=== PATIENT | female | born 1935 | race Caucasian/White ===

== ENCOUNTER 2019-04-29 23:47 | Observation (INO) ==
[2019-04-30] MEDS ORDERED: ZOFRAN IV ONE (00:17)
[2019-04-30 01:33] LABS: ALB/GLOB RATIO 1.7; ALBUMIN 4.4 g/dL (3.5-5.0); CALCIUM 10.1 mg/dL (8.8-10.2); CREATININE 1.2 mg/dL (0.5-0.9); POTASSIUM 4.3 mmol/L (3.5-5.1); TOTAL BILIRUBIN 0.64 mg/dL (0.20-1.00)
--- NOTE | 2019-04-30 01:43 | EKG Report ---
Test Performed on : 04/30/2019 00:51:10 AM Test Reason : cp Blood Pressure : / mmHG Vent. Rate : 088 BPM Atrial Rate : 088 BPM P-R Int : 154 ms QRS Dur : 086 ms QT Int : 366 ms P-R-T Axes : 077 032 126 degrees QTc Int : 442 ms Sinus rhythm. with premature atrial complexes. Left ventricular hypertrophy with repolarization abnormality Abnormal ECG No previous ECGs available Confirmed by Ramin SKELTON, Jhony Sutherland ([id number]) on 04/30/2019 7:19:56 AM
[2019-04-30 01:54] LABS: EOS# 0.04 X1000 (0.0-0.7); EOS% 0.3 % (0.0-10.0); HEMATOCRIT 46.3 % (37.0-47.0); HEMOGLOBIN 15.4 g/dL (12.0-16.0); IMM GRAN# 0.03 X1000 (0.0-0.04); IMM GRAN% 0.2 % (0.0-0.5); LYMPH# 0.55 X1000 (1.2-3.4); LYMPH% 4.3 % (20.5-51.1); MCH 31.5 PG (27-31); MCHC 33.3 g/dL (33-37); MCV 94.7 FL (81-99); MONO# 0.82 X1000 (0.11-0.59); MONO% 6.4 % (1.7-9.3); MPV 11.1 FL (7.4-10.4); NEUT# 11.32 X1000 (1.4-6.5); NEUT% 88.8 % (42.2-75.2); PLT 225 X1000 (130-400); RBC 4.89 XMIL (4.2-5.4); RDW 13.2 % (11.5-14.5); WBC 12.76 X1000 (4.8-10.8)
--- NOTE | 2019-04-30 05:21 | PROVIDER DOCUMENTATION ---
This chart was entered by Laura Christie Scribe, acting as scribe for Shayna Aiken MD. HPI-Abdominal Pain/GI Problem - General Chief Complaint: N/V/D Stated Complaint: CHEST PAIN/ABD PAIN Time Seen by Provider: 04/30/19 00:16 Source: patient Allergies/Adverse Reactions: Patient Allergies Allergy/AdvReac Type Severity Reaction Status Date / Time No Known Allergies Allergy Verified 03/24/16 15:19 Home Medications: Home Medication List Medication Instructions Recorded Confirmed Last Taken Type Amlodipine Besylate [Norvasc] 5 mg PO DAILY 03/24/16 04/30/19 04/29/19 History Pravastatin Sodium 40 mg PO DAILY 03/24/16 04/30/19 04/29/19 History Triamterene/Hctz [Dyazide] 1 each PO DAILY 03/24/16 04/30/19 04/29/19 History [place]-3 Fatty Acids [Fish Oil] 1 tab PO HS 03/25/16 04/30/19 04/29/19 History - History of Present Illness-ABD Nature of Presenting Problems: pt is a 83 yr old female presenting with complaint of nausea, vomiting, diarrhea and abdominal pain. pt reports onset approx 2100, no fever, admits chills and fatigue. pt reports similar complaints. They state she has had so many episodes of vomiting and diarrhea they are unable to count. Deny any blood in vomit or diarrhea. States vomit is just yellow and diarrhea is just watery. Abdominal Pain Onset Location: reports: generalized abdomen Pain Radiation: reports: no radiation Quality of Pain: reports: aching Severity in ED: reports: moderate Onset/Duration: reports: this evening (2100) Timing: reports: still present Activities at Onset: reports: rest Exposure to sick contacts?: Yes ( reports similar complaint) Modifying Factors: improves with: nothing Associated Symptoms: reports: diarrhea, fever/chills (chills, no fever), malaise , nausea, vomiting. denies: arm pain, back/neck pain Last BM: this evening Dark Stools Present?: reports: none noticed Rectal Bleeding: reports: none Emesis Description: reports: clear Bruising or Bleeding Gums?: No Similar Symptoms Previously?: No Recently seen or treated by another doctor?: No Review of Systems - Adult - REVIEW OF SYSTEMS - ADULT Constitutional: reports: chills, fatique. denies: fever Eyes: reports: no symptoms reported Ears, Nose, Mouth & Throat: reports: no symptoms reported Cardiovascular: denies: chest pain, palpitations, syncope Respiratory: denies: shortness of breath Gastrointestinal: reports: abdominal pain, diarrhea, nausea, vomiting Genitourinary: denies: dysuria, frequency, flank pain Musculoskeletal: reports: no symptoms reported Integumentary: reports: no symptoms reported Neurological: denies: dizziness/vertigo, headache/migraines Psychiatric: reports: no symptoms reported Endocrine: reports: no symptoms reported Hematologic/Lymphatic: reports: no symptoms reported Allergic/Immunologic: reports: no symptoms reported All Other Systems: Reviewed and Negative Past History - Adult - PAST MEDICAL HISTORY-ADULT Review of Records: reports: Old Records Reviewed, Nursing Assessment Review, Medications Reviewed, Social history reviewed & non-contributory. Major Childhood Illnesses: reports: denies history Cardiovascular: reports: denies history Respiratory: reports: denies history Gastrointestinal: reports: denies history Obstetrical/Gynecological: reports: denies history Genitourinary: reports: denies history Musculoskeletal: reports: denies history Neurological: reports: denies history Endocrine/Immune: reports: denies history Other Conditions: reports: denies history - IMMUNIZATION STATUS Childhood Immunizations: See Nurse Assessment Flu Vaccine: See Nurse Assessment - FAMILY HISTORY Family History: reviewed, not pertinent - SOCIAL HISTORY Living Situation: family Physical Exam-General - PHYSICAL EXAM-ADULT Initial Vital Signs Reviewed: Yes - CONSTITUTIONAL General Appearance: appears well, alert, mild distress (uncomfortable appearing, appears weak) - EYES Eyes: PERRL/EOMI - HEAD, EARS, NOSE, MOUTH & THROAT HENMT: normocephalic/atraumatic, moist mucous membranes - NECK Neck: non-tender, full range of motion, supple, normal inspection - RESPIRATORY Respiratory: chest non-tender, lungs clear, normal breath sounds - CARDIOVASCULAR Cardiovascular: normal peripheral pulses, regular rate, rhythm, no edema - GASTROINTESTINAL (ABDOMEN) Abdominal Exam: normal bowel sounds, soft, tenderness (generalized) - LYMPHATIC Lymphatic: no adenopathy - MUSCULOSKELETAL Back Exam: normal inspection, no CVA tenderness, no vertebral tenderness Extremity: normal range of motion, non-tender, normal inspection - SKIN Integumentary: normal color, normal turgor, warm/dry - NEUROLOGIC Neurologic: grossly normal - PSYCHIATRIC Psych/Mental Status: normal mood/affect, oriented x 3 Progress - PLAN OF CARE/RESULTS Progress/Plan/Lab Results: Vital Signs - 8 hr 04/29/19 23:59 Temperature 97.9 F Pulse Rate 69 Respiratory Rate 20 Blood Pressure 130/90 O2 Sat by Pulse Oximetry 100 Orders Category Date Time Status CHEST-PORTABLE [RAD] Stat Exams 04/30/19 00:[address] ABD/PELVIS W/IV CONT ONLY [CT] Stat Exams 04/30/19 01:14 Ordered CBC WITH ELECTRONIC DIFF [HEME] Stat Lab 04/30/19 00:46 Results COMPREHENSIVE METABOLIC PANEL [CHEM] Stat Lab 04/30/19 00:46 Received LIPASE [CHEM] Stat Lab 04/30/19 00:46 Received TROPONIN T Stat Lab 04/30/19 00:46 Received URINALYSIS W/POSS RFLX CULT [URINALYSIS] Stat Lab 04/30/19 00:17 Uncollected Ondansetron [Zofran] Med 04/30/19 00:17 Discontinued 4 mg IV NOW ONE EKG [EKG] Stat Ther 04/29/19 23:[address] scan showing possible ileus. SLightly increased WBC to 13. Cr elevated to 1.2 which is elevated from her baseline. Lipase also mildly elevated. Spoke to Dr Martin stone decorator for hospitalist who accepted patient for OBS admission given CT findings and GAGANDEEP. Further orders to be placed by their team. Stable for floor. Result Diagrams: 04/30/19 00:46 04/30/19 00:46 - EKG 1 Time of EKG reading by physician:: 01:55 EKG Read and Signed by:: Shayna Aiken EKG Interpretation (*Must complete 3 of following elements*): Abnormal Rate: 88 Rhythm: NSR [place]: normal QRS: LVH, other (PAC) Prior EKG Comparison: unchanged from prior - CT/MRI 1 CT Study: Abdomen (Nonspecific increased bowel fluid. THis could be ileus) - CONSULTS/PCP/HOSPITALIST Notification #1 *Consult/PCP/Hospitalist*: Dr Martin Time Discussed: 05:16 Consult Disposition: Admit Departure - Departure Date of Disposition Decision: 04/30/19 Time of Disposition Decision: 05:16 DIAGNOSIS: Ileus, Nausea & vomiting, GAGANDEEP (acute kidney injury) Disposition: ADMITTED INPATIENT 09 Certified Medical Emergency: Emergent Condition: Stable Referrals and Follow-Ups: Jhony Faustin MD [Primary Care Provider] - - Critical Care Note This patient required my direct & personal management of CC.: No Attestation - Physician/ NORI Attestation Patient care was provided by Advanced Practice Provider:: No The physician spent face to face time with patient:: Yes Advanced Practice Provider documentation review:: Supervising physician onsite and consulted in the evaluation and care of this patient. The physician did have a face to face encounter with the patient. This chart was documented by the indicated scribe, (Laura Christie Scribe) and accurately reflects the services I performed and decisions made by me, Shayna Aiken MD, as attested by the provider's signature.
--- NOTE | 2019-04-30 06:33 | HISTORY AND PHYSICAL ---
PRIMARY CARE PHYSICIAN: Dr. Faustin. CHIEF COMPLAINT: Nausea, vomiting and diarrhea x1 day. HISTORY OF PRESENTING ILLNESS: An 83-year-old female with a history of hypertension and hyperlipidemia, who had presented to the emergency department with a 1-day history of having nausea, vomiting and diarrhea. The patient states that she was having several bouts of not feeling well. She states that her was also sick with similar symptoms. The patient states that she recently tried a new chicken meal. She was evaluated in the emergency department. She had imaging done which did show possibility of ileus due to her presenting symptoms, and it was thought that we will place her for observation for further evaluation and management. At the time of my examination, patient denied any headache, fever, chills, chest pain, shortness of breath, hemoptysis, melena or weight changes, but complained of diarrhea and not feeling well. PAST MEDICAL HISTORY: Includes hypertension and hyperlipidemia. PAST SURGICAL HISTORY: Hysterectomy and cataract surgery. ALLERGIES: No known drug allergies. CURRENT MEDICATIONS: 1. Amlodipine 5 mg p.o. daily. 2. Pravastatin 40 mg p.o. daily. 3. Dyazide 1 tablet daily. SOCIAL HISTORY: No history of smoking, alcohol or illicit drug use. FAMILY HISTORY: Positive for coronary artery disease in father. REVIEW OF SYSTEMS: Fourteen point review of system as listed in HPI. Other systems negative. PHYSICAL EXAMINATION: GENERAL: Cooperative friendly female. She is resting more comfortably now. VITAL SIGNS: Temperature 97.9 degrees, pulse 69, respirations 20, and blood pressure 130/90. HEENT: Atraumatic, normocephalic. Extraocular movements intact. PERRLA. NECK: Supple. CHEST: Clear to auscultation. CARDIOVASCULAR: Regular rate and rhythm. ABDOMEN: Soft. Positive bowel sounds. EXTREMITIES: No edema. NEUROLOGIC: She is awake, alert, and oriented x3. : No bladder distention. SKIN: Warm. LABORATORIES AND STUDIES: WBC 12.76, hemoglobin 15.4, hematocrit 46.3, and platelets 225,000. Sodium 140, potassium 4.3, chloride 98, CO2 28, BUN is 32, creatinine is 1.2, and glucose is 191. CT of the abdomen shows ileus. ASSESSMENT: This 83-year-old elderly female with a history of hypertension and hyperlipidemia, presented to the emergency department with a 1-day history of having nausea, vomiting and diarrhea. She was evaluated in the emergency department. She had imaging done which did show the possibility of ileus. Subsequently, we will place her for observation and for further evaluation and management. ASSESSMENT: 1. Nausea, vomiting, and diarrhea with abdominal pain. 2. Suspected ileus. 3. Hypertension. PLAN: 1. We will admit patient to medical floor with telemetry. 2. Continue with supportive treatment with IV fluids, antiemetics, and pain control. 3. We will monitor blood pressure closely. 4. Resume antihypertensive agent. 5. We will put patient on DVT prophylaxis with SCD's. 6. We will continue to follow and reassess. Make further recommendations based on patient's clinical course. cc: Bryce Martin MD MTDD
--- NOTE | 2019-04-30 06:47 | Diag Imaging Result Doc PS360 ---
CT ABD/PELVIS W/IV CONT ONLY - 04/30/2019 INDICATION: n/v/d COMPARISON: 09/10/2013 FINDINGS: Stable multifocal linear atelectasis in the lung bases. Stable small calcified granuloma in the left lower lobe. No infiltrates. There are several bilateral small renal cysts. Otherwise all abdominal organs are normal. No bowel obstruction or inflammation. No constipation. Very little formed stool. Uterus is absent. Urinary bladder and rectum are normal. There are moderate degenerative changes of the spine. No acute or suspicious bony lesion. IMPRESSION: No acute process. This exam was performed using automated exposure control, adjustment of mA or kV according to patient size, and/or use of iterative reconstruction technique Electronically signed by Teddy Sepulveda 04/30/2019 6:45 AM
[2019-04-30 07:36] LABS: URINE SOURCE CLEAN CATCH
[2019-04-30 07:38] LABS: BILIRUBIN URINE NEGATIVE (NEGATIVE); BLOOD URINE NEGATIVE (NEGATIVE); COLOR YELLOW; GLUCOSE URINE NEGATIVE (NEGATIVE); KETONE URINE NEGATIVE (NEGATIVE); LEUKOCYTES URINE TRACE (NEGATIVE); NITRITE URINE NEGATIVE (NEGATIVE); PROTEIN URINE TRACE mg/dL (NEGATIVE); TURBIDITY URINE CLEAR (CLEAR); UROBILINOGEN URINE NORMAL (NORMAL)
[2019-04-30 07:39] LABS: UR EPITHELIAL CELLS <10 /HPF (<10); URINE BACTERIA NEGATIVE /HPF; URINE RBC <10 /HPF (<10)
[2019-04-30] MEDS ORDERED: NS 1,000 ML IV SCH (07:48)
[2019-04-30] MEDS ORDERED: ZOFRAN IV PRN (07:48)
[2019-04-30 07:50] LABS: SP GRAVITY URINE < 1.005
--- NOTE | 2019-04-30 07:53 | Diag Imaging Result Doc PS360 ---
EXAM: CHEST-PORTABLE INDICATION: chest pain TECHNIQUE: One view COMPARISON: None. FINDINGS: There is mild bibasilar subsegmental atelectasis. There is a small calcified granuloma at the left lung base. The lungs are grossly clear, otherwise. There is no discrete pleural fluid collection or pneumothorax. The cardiomediastinal silhouette and central vasculature are grossly unremarkable. IMPRESSION: Mild bibasilar atelectasis. Electronically signed by Guy Marcos 04/30/2019 7:51 AM
[2019-04-30] MEDS ORDERED: NORVASC PO SCH (09:00)
[2019-04-30] MEDS ORDERED: PRAVACHOL PO SCH (09:00)
[2019-04-30] MEDS ORDERED: DYAZIDE PO SCH (09:00)
[2019-04-30 15:27] VITALS: BP 132/47
== END 2019-04-30 16:27 | disposition home or self-care (01) ==
LOC: 3N 23:47 → ED 23:47 → SUATTDRO 04-30 06:55
PROVIDERS: ADMIT Internal Medicine; ATTEND Internal Medicine